=== PATIENT | male | born 1970 | race Caucasian/White ===

== ENCOUNTER → 2017-12-09 | Outpatient (CLI) | payer OTHER ==
[~2017-12-09] MED LIST: ALLEGRA180 MG PO; IBUPROFEN 800800 M1 PO; NOHOMEMEDICATIONS; NORCO 5-325 TA1 EACH PO; NORCO 7.5-3251 EACH PO; ONDANSETRON HCL4 M3 PO; OXYCONTIN10 M1 PO; PERCOCET 5-3251 EACH PO; TAMSULOSIN HCL0.4 M1 PO; TAMSULOSIN HCL0.4 MG PO; ZOFRAN 4 MG ORAL4 MG PO
== END ==
LOC: CAT 06:57
DX: N20.0 Calculus of kidney (principal); K42.9 Umbilical hernia without obstruction or gangrene